=== PATIENT | male | born 1995 | race Caucasian/White ===

== ENCOUNTER 2018-09-14 05:07 | Emergency (ER) | payer MEDICAID ==
[~2018-09-14] VITALS: Ht 167.6 cm; Wt 73.6 kg
[~2018-09-14 05:07] MED LIST: HYDR50TA65 PO; OLAN5TAB3 PO; ZOL50T PO
--- NOTE | 2018-09-14 05:29 | NUR ---
pt. put in bed 20. pt. ambulatory.
--- NOTE | 2018-09-14 05:41 | NUR ---
pt. crying stating that his"babys mama wont let him see his daughter. I just want to see my daughter".
[2018-09-14 06:03] LABS: CLARITY,URINE CLEAR (Clear); COLOR,URINE YELLOW (Yellow); GLUCOSE, URINE NEGATIVE (Neg); KETONES,URINE NEGATIVE (Neg); LEUKOCYTE ESTERASE ,URINE NEGATIVE (Neg); NITRITES, URINE NEGATIVE (Neg); OCCULT BLOOD,URINE NEGATIVE (Neg); PROTEIN,URINE NEGATIVE (Neg); UROBILINOGEN,URINE 0.2 E.U/dL (0.2-1.0)
[2018-09-14 06:17] LABS: URINE AMPHETAMINE SCREEN NEGATIVE (Neg); URINE BARBITUATE SCREEN NEGATIVE (Neg); URINE BENZODIAZEPINES SCREEN NEGATIVE (Neg); URINE CANNABINOID SCREEN POSITIVE (Neg); URINE COCAINE SCREEN NEGATIVE (Neg); URINE METHADONE SCREEN NEGATIVE (Neg); URINE OPIATE SCREEN NEGATIVE (Neg); URINE PHENCYCLIDINE SCREEN NEGATIVE (Neg)
[2018-09-14 06:28] LABS: UA COLLECTION TYPE CLN CATCH MIDSTREAM
--- NOTE | 2018-09-14 06:39 | NUR ---
Telepsych called. Pt placed in queue.
--- NOTE | 2018-09-14 07:30 | NUR ---
Pt sitting up in bed speaking with psychiatrist via telepsych. Appears cooperative.
[2018-09-14 07:54] LABS: BASOPHILS % (AUTO) 0.3 % (0-1); EOSINOPHILS # (AUTO) 0.4 X10'3 (0-0.9); EOSINOPHILS % (AUTO) 4.1 % (0-6); HEMATOCRIT 44.4 % (42.0-52.0); HEMOGLOBIN 14.9 g/dl (14.0-17.9); LYMPHOCYTES # (AUTO) 2.9 X10'3 (1.1-4.8); LYMPHOCYTES % (AUTO) 32.5 % (21-51); MEAN CORPUSCULAR HEMOGLOBIN 28.9 PG (27.0-31.0); MEAN CORPUSCULAR HGB CONC 33.6 % (33.0-36.5); MEAN CORPUSCULAR VOLUME 85.9 FL (78-98); MONOCYTES # (AUTO) 0.7 X10'3 (0-0.9); MONOCYTES % (AUTO) 7.9 % (2-12); NEUTROPHILS # (AUTO) 4.9 X10'3 (1.8-7.7); NEUTROPHILS % (AUTO) 55.2 % (42-75); PLATELET COUNT 296 X10'3 (140-440); RED BLOOD COUNT 5.17 X10'6 (4.70-6.10); RED CELL DISTRIBUTION WIDTH 13.1 % (11.5-14.5); WHITE BLOOD COUNT 8.9 X10'3 (4.5-11.0)
[2018-09-14] MEDS ORDERED: sertraline 50mg tablet PO SCH (08:00)
[2018-09-14] MEDS ORDERED: sertraline 25mg tablet PO SCH (08:00)
[2018-09-14 08:02] LABS: ANION GAP 7 (8-16); BLOOD UREA NITROGEN 15 MG/DL (7-18); BUN/CREATININE RATIO 19.2 (5.4-32.0); CHLORIDE 104 MMOL/L (99-107); CREATININE 0.78 MG/DL (0.60-1.10); GLUCOSE 87 MG/DL (70-104); POTASSIUM 4.8 MMOL/L (3.5-5.1); SODIUM 140 MMOL/L (135-145); TOTAL CARBON DIOXIDE 28.9 MMOL/L (24-32)
[2018-09-14 08:03] LABS: ALANINE AMINOTRANSFERASE 24 U/L (12-78); ALBUMIN 3.7 G/DL (3.4-5.0); ALBUMIN/GLOBULIN RATIO 1.2 (1.1-1.5); ALKALINE PHOSPHATASE 73 IU/L (46-116); ASPARTATE AMINO TRANSFERASE 18 U/L (10-37); BILIRUBIN,TOTAL 0.3 MG/DL (0.1-1.0); TOTAL PROTEIN 6.9 G/DL (6.4-8.2); eGFR > 90 ML/MIN
[2018-09-14 08:13] LABS: ETHANOL < 0.010 GM/DL (0.0-0.010)
--- NOTE | 2018-09-14 08:30 | NUR ---
Took morning med. Continues to cooperate with care.
--- NOTE | 2018-09-14 10:37 | NUR ---
Sitting up in bed reading Bible.
--- NOTE | 2018-09-14 12:00 | NUR ---
Using phone to try and call mom.
--- NOTE | 2018-09-14 17:24 | NUR ---
Report given to León at [facility]. They will "run information by the doctor and let me know".
[2018-09-14 18:16] VITALS: BP 142/88
--- NOTE | 2018-09-14 18:24 | NUR ---
[facility] will be picking pt up pt at 2030.
[2018-09-14] MEDS ORDERED: OLANZapine 5mg rapidly disint. tablet PO SCH (21:00)
--- NOTE | 2018-09-14 21:11 | NUR ---
Pt transferred to [facility], [facility] at 2044, pt is ambulatory, all belongings sent with him.
== END 2018-09-14 21:52 ==
LOC: ER 05:08
DX: F32.9 Major depressive disorder, single episode, unspecified (principal); Z88.0 Allergy status to penicillin; Z79.899 Other long term (current) drug therapy
CPT/HCPCS: 36415; 80053; 80305; 80320; 81003; 84443; 85025; 99285

== ENCOUNTER 2019-09-08 04:16 | Emergency (ER) | payer MEDICAID ==
[~2019-09-08] VITALS: Ht 175.3 cm; Wt 68.2 kg
[~2019-09-08 04:16] MED LIST changes: +SERT-153 PO; -ZOL50T PO
[2019-09-08 04:20] VITALS: BP 148/56
[2019-09-08 05:08] LABS: BASOPHILS # (AUTO) 0.1 X10'3 (0-0.2); BASOPHILS % (AUTO) 0.6 % (0-1); EOSINOPHILS # (AUTO) 0.5 X10'3 (0-0.9); EOSINOPHILS % (AUTO) 5.3 % (0-6); HEMATOCRIT 41.9 % (42.0-52.0); HEMOGLOBIN 14.2 g/dl (14.0-17.9); LYMPHOCYTES # (AUTO) 2.9 X10'3 (1.1-4.8); LYMPHOCYTES % (AUTO) 32.2 % (21-51); MEAN CORPUSCULAR HEMOGLOBIN 29.7 PG (27.0-31.0); MEAN CORPUSCULAR HGB CONC 33.8 g/dL (33.0-36.5); MEAN CORPUSCULAR VOLUME 87.8 FL (78-98); MEAN PLATELET VOLUME 8.3 FL (7.4-10.4); MONOCYTES # (AUTO) 0.7 X10'3 (0-0.9); MONOCYTES % (AUTO) 7.8 % (2-12); NEUTROPHILS # (AUTO) 4.9 X10'3 (1.8-7.7); NEUTROPHILS % (AUTO) 54.1 % (42-75); PLATELET COUNT 237 X10'3 (140-440); RED BLOOD COUNT 4.77 X10'6 (4.70-6.10); RED CELL DISTRIBUTION WIDTH 13.5 % (11.5-14.5)
[2019-09-08 05:27] LABS: ALANINE AMINOTRANSFERASE 32 U/L (12-78); ALBUMIN 3.7 G/DL (3.4-5.0); ALBUMIN/GLOBULIN RATIO 1.2 (1.1-1.5); ALKALINE PHOSPHATASE 84 IU/L (46-116); ANION GAP 10 (8-16); ASPARTATE AMINO TRANSFERASE 27 U/L (10-37); BILIRUBIN,TOTAL 0.3 MG/DL (0.1-1.0); BLOOD UREA NITROGEN 15 MG/DL (7-18); BUN/CREATININE RATIO 16.9 (5.4-32.0); CALCIUM 8.3 MG/DL (8.5-10.1); CHLORIDE 107 MMOL/L (99-107); CREATININE 0.89 MG/DL (0.60-1.10); ETHANOL < 0.010 GM/DL (0.0-0.010); GLUCOSE 113 MG/DL (70-104); POTASSIUM 3.9 MMOL/L (3.5-5.1); SODIUM 142 MMOL/L (135-145); TOTAL CARBON DIOXIDE 25.2 MMOL/L (24-32); TOTAL PROTEIN 6.7 G/DL (6.4-8.2); eGFR > 90 ML/MIN
--- NOTE | 2019-09-08 05:34 | NUR ---
Pt. brought to room, changed into green scrubs. laying quietly with eyes closed. blanket given. Pt. is pleasant and cooperative.
[2019-09-08 05:37] LABS: URINE AMPHETAMINE SCREEN NEGATIVE (Neg); URINE BARBITUATE SCREEN NEGATIVE (Neg); URINE BENZODIAZEPINES SCREEN POSITIVE (Neg); URINE CANNABINOID SCREEN POSITIVE (Neg); URINE COCAINE SCREEN NEGATIVE (Neg); URINE METHADONE SCREEN NEGATIVE (Neg); URINE OPIATE SCREEN NEGATIVE (Neg); URINE PHENCYCLIDINE SCREEN NEGATIVE (Neg)
--- NOTE | 2019-09-08 06:06 | NUR ---
pt packet faxed to [facility]
--- NOTE | 2019-09-08 06:19 | NUR ---
Pt is asleep on his left side in no apparent distress. Respirations are even and unlabored.
--- NOTE | 2019-09-08 08:11 | NUR ---
Pt awakened for breakfast. He went right back to sleep and did not eat any of his breakfast.
--- NOTE | 2019-09-08 09:07 | NUR ---
Dane from [facility] is speaking with pt. Pt is eating his breakfast
--- NOTE | 2019-09-08 09:32 | NUR ---
PT AMBULATORY TO THE BATHROOM WITH STEADY GAIT, PT RETURNED TO BED, NO S/S OF DISTRESS, DISCOMFORT OR AGITIATION. PT REPORTS HE HAS NOT TAKEN ANY PSYCH MEDS FOR MANY MONTHS PT REPORTS ZOLOFT, ZYPREXA AND HYDROXYZINE WERE NOT EFFECTIVE IN TREATING HIS BIPOLAR. PT HAS SEEN MANY PSYCH DOCTORS BUT DOES NOT HAVE PSYCH DOCTOR CURRENTLY.
--- NOTE | 2019-09-08 10:43 | NUR ---
Pt is asleep on his left side in no apparent distress. Respirations are even and unlabored.
--- NOTE | 2019-09-08 12:34 | NUR ---
Asked pt to provide a urine sample. Pt is agitiated stating this is the worst hospital he has ever been in and why does he have to provide another sample.
--- NOTE | 2019-09-08 13:35 | NUR ---
Pt ate all of his lunch and provided a urine sample
[2019-09-08 13:36] LABS: CLARITY,URINE CLEAR (Clear); COLOR,URINE STRAW (Yellow); GLUCOSE, URINE NEGATIVE (Neg); KETONES,URINE NEGATIVE (Neg); LEUKOCYTE ESTERASE ,URINE NEGATIVE (Neg); NITRITES, URINE NEGATIVE (Neg); OCCULT BLOOD,URINE NEGATIVE (Neg); PH,URINE 7.5 (4.8-8.0); PROTEIN,URINE NEGATIVE (Neg); UROBILINOGEN,URINE 0.2 E.U/dL (0.2-1.0)
[2019-09-08 13:40] LABS: UA COLLECTION TYPE VOIDED
--- NOTE | 2019-09-08 14:19 | NUR ---
PATIENT STATES THAT HE TWISTED HIS LEFT ANKLE HOT DOG VENDOR HERE AT THE HOSPITAL. STATES ANKLE IS HURTING AT PRESENT. MODERATE AMOUNT OF SWELLING NOTED TO LEFT, LATERAL, TOP OF FOOT. ER MD WILL BE NOTIFIED.
--- NOTE | 2019-09-08 14:37 | NUR ---
PORTABLE ANKLE XRAYS PERFORMED AT THE BEDSIDE.
--- NOTE | 2019-09-08 15:10 | NUR ---
[facility] is here to transport pt to [facility]
== END 2019-09-08 15:25 ==
LOC: ER 04:17
DX: F32.9 Major depressive disorder, single episode, unspecified (principal); M25.572 Pain in left ankle and joints of left foot; Z88.0 Allergy status to penicillin; Z79.899 Other long term (current) drug therapy
CPT/HCPCS: 36415; 73610; 80053; 80305; 80320; 81003; 84443; 85025; 99285